=== PATIENT | female | born 1980 | race Caucasian/White ===

== ENCOUNTER 2019-03-03 14:56 | Day surgery (SDC) | payer MEDICARE, MEDICAID ==
[2019-03-03] MEDS ORDERED: MIDAZOLAM HCL SYRUP 10 MG/5 ML UDC ONE (15:32)
[2019-03-03] MEDS ORDERED: PROPOFOL INJ 200 MG/20 ML VIAL IV ONE (17:32)
--- NOTE | 2019-03-03 18:24 | Operative Report ---
Operative Report DATE OF SURGERY: 03/03/19 Operative Report: Pre-op diagnosis: History of colon polyps Post-op diagnosis: Sigmoid diverticulum Surgery: Colonoscopy Medications: As per anesthesia Tissue removed: None Procedure: After informed consent obtained from patient power of contracts attorney she was placed under deep sedation. A digital rectal examination was performed and this was unremarkable. The colonoscope was inserted into the rectum and advanced to the cecum. The appendiceal orifice and the terminal ileum were both identified. The mucosa was examined into details as the colonoscope was slowly pulled out of the patient. The endoscope was retroflexed in the rectum. Patient tolerated the procedure well. Findings Cecum: Normal Ascending colon: Normal Transverse colon: Normal Descending colon: Normal Sigmoid colon: Single small diverticulum Rectum: Normal except for internal hemorrhoids Plan: Follow-up colonoscopy in 10 years OPERATION: .
[2019-03-03 20:42] VITALS: BP 95/60
== END 2019-03-03 20:00 ==
LOC: OROUT 14:56
PROVIDERS: ATTEND Internal Medicine Gastroenterology
DX: Z12.11 Encounter for screening for malignant neoplasm of colon (principal); Z86.010 Personal history of colon polyps; K57.30 Diverticulosis of large intestine without perforation or abscess without bleeding; K64.8 Other hemorrhoids; D64.9 Anemia, unspecified; F84.0 Autistic disorder; F72 Severe intellectual disabilities
CPT/HCPCS: 36415; 84703; 00811; G0121; J2704; A9270; 45378; 811